=== PATIENT | male | born 1975 | race Caucasian/White ===

== ENCOUNTER 2021-04-13 13:39 | Day surgery (SDC) | payer OTHER ==
[~2021-04-13] VITALS: Ht 188 cm; Wt 118.0 kg
[2021-04-13 13:25] VITALS: BP 156/86
[2021-04-13] MEDS ORDERED: LIDOcaine Viscous 15ml cup ONE (13:42)
[2021-04-13] MEDS ORDERED: MIDAZolam 1 MG/ML 5ML VIAL ONE (13:42)
[2021-04-13] MEDS ORDERED: fentaNYL/PF 50MCG/1 ML 2ML syringe ONE (13:42)
[2021-04-13 14:03] VITALS: BP 143/82
[2021-04-13 14:13] VITALS: BP 136/84
[2021-04-13 14:23] VITALS: BP 136/84
[2021-04-13 14:33] VITALS: BP 138/88
== END 2021-04-13 14:35 | disposition home or self-care (01) ==
LOC: GI LAB 13:39
PROVIDERS: ATTEND Internal Medicine Gastroenterology
DX: R10.13 Epigastric pain (principal); R11.2 Nausea with vomiting, unspecified; K21.00 Gastro-esophageal reflux disease with esophagitis, without bleeding; K31.89 Other diseases of stomach and duodenum; K29.60 Other gastritis without bleeding; Z87.891 Personal history of nicotine dependence
CPT/HCPCS: 43239; 99152; J2250; J3010; J7040; Z7512; A4620